=== PATIENT | male | born 1955 | race Hispanic/Latino ===

== ENCOUNTER → 2021-04-28 | Day surgery (SDC) | payer MEDICARE ==
[2021-04-26 10:13] LABS: BASOPHILS % 0.6 % (0.0-1.0); EOSINOPHILS # (AUTO) 0.1 (0.0-0.4); EOSINOPHILS % 2.1 % (0.0-6.0); HEMATOCRIT 41.4 % (38.2-49.6); HEMOGLOBIN 13.6 g/dL (14.0-18.0); LYMPHOCYTES # (AUTO) 1.3 (1.0-3.2); LYMPHOCYTES % 19.9 % (18.0-39.1); MEAN CORPUSCULAR HEMOGLOBIN 30.4 pg (28-32); MEAN CORPUSCULAR HGB CONC 32.9 g/dL (31-35); MEAN CORPUSCULAR VOLUME 92.6 fL (81-99); MONOCYTES # (AUTO) 0.5 (0.2-0.8); MONOCYTES % 7.4 % (4.4-11.3); NEUTROPHILS # (AUTO) 4.6 (2.1-6.9); NEUTROPHILS % 69.2 % (38.7-80.0); PLATELET COUNT 208 x10e3/uL (140-360); RED BLOOD COUNT 4.47 x10e6/uL (4.3-5.7); RED CELL DISTRIBUTION WIDTH 12.5 % (11.7-14.4)
[~2021-04-28] MED LIST: AMLODIPINE BESYL5 MG PO; HYDROCHLOROTHIA25 MG PO; LOSARTAN POTASS25 MG PO; OMEPRAZOLE40 MG PO; SIMVASTATIN20 MG PO
[2021-04-28 13:15] VITALS: BP 109/64
== END | disposition home or self-care (01) ==
LOC: OR 09:43
PROVIDERS: ATTEND Internal Medicine Gastroenterology
DX: D12.0 Benign neoplasm of cecum (principal); D12.3 Benign neoplasm of transverse colon; K64.8 Other hemorrhoids; E66.3 Overweight; Z68.27 Body mass index [BMI] 27.0-27.9, adult; I10 Essential (primary) hypertension; I25.10 Atherosclerotic heart disease of native coronary artery without angina pectoris; Z01.810 Encounter for preprocedural cardiovascular examination; Z01.812 Encounter for preprocedural laboratory examination; Z20.822 Contact with and (suspected) exposure to COVID-19
CPT/HCPCS: 36415; 45385; 85025; 93005; U0002; 45378